=== PATIENT | female | born 1965 | race Caucasian/White ===

== ENCOUNTER 2017-09-03 11:29 | Emergency (ER) | payer SELFPAY ==
[2017-09-03 11:35] VITALS: BP 134/68
--- NOTE | 2017-09-03 12:44 | ED Physician Documentation ---
History of Present Illness - Stated complaint Stated Complaint: R LEG DOG BITE - Chief complaint Chief Complaint: General - History obtained from History obtained from: Patient - History of Present Illness Timing: Yesterday Pain level max: 1 Pain level now: 0 Improved by: nothing Worsened by: nothing - Additonal information Additional information: Patient is a 51-year-old female [place], was in [place] yesterday when she was bit by a domesticated dog. Seen at an urgent care there and started on she is concerned about possible rabies exposure and came here for evaluation. The dog is previously vaccinated but the rabies vaccination has . It is an indoor dog. Review of Systems Constitutional: denies: Fever, Chills GI: denies: Vomiting Skin: denies: Rash Musculoskeletal: denies: Neck pain, Back pain Neurologic: denies: Headache PD PAST MEDICAL HISTORY - Past Medical History Past Medical History: Yes Neuro: Seizure disorder - Past Surgical History Past Surgical History: No - Allergies Allergies/Adverse Reactions: Allergies Allergy/AdvReac Type Severity Reaction Status Date / Time erythromycin base Allergy Hives Verified 09/03/17 11:36 sumatriptan [From Imitrex] Allergy Anaphylaxis Verified 09/03/17 11:36 - Social History Does the pt smoke?: Yes Smoking Status: Current every day smoker Does the pt drink ETOH?: No Does the pt have substance abuse?: No PD ED PE NORMAL - Vitals Vital signs reviewed: Yes - General General: Alert and oriented X 3 - HEENT HEENT: Moist mucous membranes - Neck Neck: Supple, no meningeal sign - Cardiac Cardiac: RRR - Respiratory Respiratory: No respiratory distress, Clear bilaterally - Derm Derm: Warm and dry - Extremities Extremities: Other (R LE - multiple superficial abrasions. no signs of infection. ) - Neuro Neuro: Alert and oriented X 3 - Psych Psych: Normal mood, Normal affect Results - Vitals Vitals: Vital Signs - 24 hr 09/03/17 11:33 Temperature 36 C L Heart Rate 70 Respiratory 18 Rate Blood Pressure 134/68 H O2 Saturation 99 Oxygen O2 Source Room air PD MEDICAL DECISION MAKING - ED course Complexity details: considered differential, d/w patient ED course: Patient is a 51-year-old female with dog bite to the right lower extremity. She is already on antibiotics. She is clinically low risk for rabies infection. I did discuss vaccination, but she declines at this time and I think this is reasonable in her case. It was a domesticated dog who recently had his rabies vaccination . Is not an outside dog. Patient counseled regarding signs and symptoms for which I believe and urgent re-evaluation would be necessary. Patient with good understanding of and agreement to plan and is comfortable going home at this time This document was made in part using voice recognition software. While efforts are made to proofread this document, sound alike and grammatical errors may occur. - Sepsis Event Vital Signs: Vital Signs - 24 hr 09/03/17 11:33 Temperature 36 C L Heart Rate 70 Respiratory 18 Rate Blood Pressure 134/68 H O2 Saturation 99 Oxygen O2 Source Room air Departure - Departure Disposition: Home, Self Care Clinical Impression: Dog bite Qualifiers: Encounter type: initial encounter Qualified Code(s): W54.0XXA - Bitten by dog, initial encounter Condition: Good Instructions: ED Bite Animal General Follow-Up: your,doctor in 1 week for wound check [Other] Comments: Take the antibiotics as previously prescribed. As we discussed you are very low risk for rabies exposure. Return if you worsen
== END 2017-09-03 12:51 | disposition home or self-care (01) ==
LOC: ED 11:29
DX: S81.851A Open bite, right lower leg, initial encounter (principal); W54.0XXA Bitten by dog, initial encounter; F17.200 Nicotine dependence, unspecified, uncomplicated
CPT/HCPCS: 99282